=== PATIENT | female | born 1985 | race African-American/Black ===

== ENCOUNTER 2024-08-01 18:34 | Emergency (ER) | payer BC, OTHER, SELFPAY ==
[2024-08-01] MEDS ORDERED: predniSONE 20 MG TAB ONE (19:04)
[2024-08-01] MEDS ORDERED: Ipratropium/Albuterol 3 ML NEB ONE (19:04)
== END 2024-08-01 19:31 | disposition home or self-care (01) ==
LOC: BURERS 18:34
DX: R05.1 Acute cough (principal); I10 Essential (primary) hypertension; Z79.82 Long term (current) use of aspirin; Z79.899 Other long term (current) drug therapy
CPT/HCPCS: 94640; J7512; J7620